=== PATIENT | female | born 2000 | race Caucasian/White ===

== ENCOUNTER 2023-02-12 10:33 | Emergency (ER) | payer MEDICAID ==
[~2023-02-12] VITALS: Ht 167.6 cm; Wt 75.9 kg
[2023-02-12 10:55] VITALS: TEMP 98.3
[2023-02-12 11:43] VITALS: BP 137/83; PULSE 81
[2023-02-12] MEDS ORDERED: CILOXAN 5 ML5 ML OP (14:28)
== END 2023-02-12 11:43 | disposition home or self-care (01) ==
LOC: COL.ER 10:33
DX: S05.02XA Injury of conjunctiva and corneal abrasion without foreign body, left eye, initial encounter (principal); Z88.1 Allergy status to other antibiotic agents; Z28.310 Unvaccinated for COVID-19; W22.8XXA Striking against or struck by other objects, initial encounter; Y93.01 Activity, walking, marching and hiking